=== PATIENT | male | born 1965 | race African-American/Black ===

== ENCOUNTER 2017-01-31 22:21 | Emergency (ER) | payer BC ==
[2017-01-31] MEDS ORDERED: HYDROcodone/Acetaminophen 5/325 mg Tablet ONE (22:50)
== END 2017-01-31 22:58 | disposition home or self-care (01) ==
LOC: BURERS 22:21
DX: S46.212A Strain of muscle, fascia and tendon of other parts of biceps, left arm, initial encounter (principal); X50.0XXA Overexertion from strenuous movement or load, initial encounter
CPT/HCPCS: 99283